=== PATIENT | male | born 1990 | race Caucasian/White ===

== ENCOUNTER 2016-03-11 14:44 | Emergency (ER) | payer OTHER, MEDICAID ==
--- NOTE | 2016-03-11 14:59 | ER Document Report ---
ED Medical Screen (RME) - General Stated Complaint: ABDOMINAL PAIN Notes: 25 yo male c/o RLQ pain since 12 today. low back pain since last night. + nausea, no vomiting. no fever. + diarrhea. no urinary symptoms TRAVEL OUTSIDE OF THE [place] IN LAST 30 DAYS: No - Related Data Allergies/Adverse Reactions: nickel [Nickel] Allergy (Verified 04/10/15 20:32) Generalized Itching poison anjali extract [Poison Anjali Extract] Allergy (Verified 04/10/15 20:32) Past Medical History - Past Medical History Cardiac Medical History: Denies: Hx Coronary Artery Disease, Hx Heart Attack, Hx Hypertension Pulmonary Medical History: Reports: Hx Asthma, Hx Bronchitis, Hx Pneumonia Denies: Hx COPD Neurological Medical History: Reports: Hx Seizures - WHEN 2 MENINGITIS HAD SEIZURES AND BRAIN BLEED. Denies: Hx Cerebrovascular Accident - HAS MENINGITIS WHEN 2 Musculoskeltal Medical History: Denies Hx Arthritis Psychiatric Medical History: Reports: Hx Attention Deficit Hyperactivity Disorder, Hx Bipolar Disorder, Hx Depression Past Surgical History: Reports: Hx Cholecystectomy, Hx Orthopedic Surgery - finger - Immunizations Hx Diphtheria, Pertussis, Tetanus Vaccination: Yes
[2016-03-11 15:33] LABS: ABSOLUTE BASOPHILS # (AUTO) 0.1 10^3/uL (0.0-0.2); ABSOLUTE EOSINOPHILS # (AUTO) 0.3 10^3/uL (0.0-0.6); ABSOLUTE LYMPHOCYTES (AUTO) 2.4 10^3/uL (0.5-4.7); BASOPHILS % (AUTO) 1.4 % (0-2); EOSINOPHILS % (AUTO) 3.3 % (0-6); HEMATOCRIT 50.9 % (37.9-51.0); HEMOGLOBIN 17.8 g/dL (13.5-17.0); HGB HCT DIFFERENCE 2.5; LYMPHOCYTES % (AUTO) 24.6 % (13-45); MEAN CORPUSCULAR VOLUME 83 fl (80-97); MONOCYTES % (AUTO) 9.9 % (3-13); RED BLOOD COUNT 6.14 10^6/uL (4.35-5.55); SEGMENTED NEUTROPHILS % (AUTO) 60.8 % (42-78); WHITE BLOOD COUNT 9.9 10^3/uL (4.0-10.5)
[2016-03-11 15:42] LABS: APPEARANCE,URINE CLEAR; BILIRUBIN,URINE NEGATIVE (NEGATIVE); GLUCOSE, URINE NEGATIVE (NEGATIVE); KETONES,URINE NEGATIVE (NEGATIVE); LEUKOCYTE ESTERASE,URINE NEGATIVE (NEGATIVE); NITRITE,URINE NEGATIVE (NEGATIVE); PROTEIN,URINE NEGATIVE (NEGATIVE); URINE SPECIFIC GRAVITY 1.031; UROBILINOGEN,URINE NEGATIVE mg/dL (<2.0)
[2016-03-11 15:49] LABS: ALANINE AMINOTRANSFERASE 25 U/L (21-72); ALBUMIN 5.3 g/dL (3.5-5.0); ALKALINE PHOSPHATASE 70 U/L (38-126); ANION GAP 15 (5-19); ASPARTATE AMINO TRANSFERASE 20 U/L (17-59); BILIRUBIN,TOTAL 0.6 mg/dL (0.2-1.3); BLOOD UREA NITROGEN 15 mg/dL (7-20); CARBON DIOXIDE 25 mmol/L (22-30); CHLORIDE 102 mmol/L (98-107); CREATININE RESULT 0.75 mg/dL (0.52-1.25); GLUCOSE 91 mg/dL (75-110); LIPASE 61.6 U/L (23-300); POTASSIUM 4.3 mmol/L (3.6-5.0); SODIUM 142.1 mmol/L (137-145)
--- NOTE | 2016-03-11 20:10 | ER Document Report ---
ED General - General Chief Complaint: Abdominal Pain Stated Complaint: ABDOMINAL PAIN Notes: Patient is a 25-year-old male with past medical history of tachycardia who presents with one episode of green diarrhea after she developed an abrupt onset of sharp, focal right lower quadrant abdominal pain that has since resolved. Denies a history of similar symptoms in the past. Nothing improved or worsened his symptoms. He does have a history of a cholecystectomy. Denies any testicular tenderness or pain. Denies any discomfort at all time of my assessment. Denies any vomiting and has been able to tolerate oral intake. He has not had any fever or abdominal trauma. He has not seen his primary care physician regarding today's concerns. TRAVEL OUTSIDE OF THE [place] IN LAST 30 DAYS: No - Related Data Allergies/Adverse Reactions: nickel [Nickel] Allergy (Verified 03/11/16 15:00) Generalized Itching poison anjali extract [Poison Anjali Extract] Allergy (Verified 03/11/16 15:00) Past Medical History - General Information source: Patient - Social History Smoking Status: Never Smoker Chew tobacco use (# tins/day): No Frequency of alcohol use: Occasional Drug Abuse: None Lives with: Spouse/Significant other Family History: Reviewed & Not Pertinent Patient has suicidal ideation: No Patient has homicidal ideation: No - Past Medical History Cardiac Medical History: Denies: Hx Coronary Artery Disease, Hx Heart Attack, Hx Hypertension Pulmonary Medical History: Reports: Hx Asthma, Hx Bronchitis, Hx Pneumonia Denies: Hx COPD Neurological Medical History: Reports: Hx Seizures - WHEN 2 MENINGITIS HAD SEIZURES AND BRAIN BLEED. Denies: Hx Cerebrovascular Accident - HAS MENINGITIS WHEN 2 Renal/ Medical History: Denies: Hx Peritoneal Dialysis Musculoskeltal Medical History: Denies Hx Arthritis Psychiatric Medical History: Reports: Hx Attention Deficit Hyperactivity Disorder, Hx Bipolar Disorder, Hx Depression Past Surgical History: Reports: Hx Cholecystectomy, Hx Orthopedic Surgery - finger - Immunizations Hx Diphtheria, Pertussis, Tetanus Vaccination: Yes Review of Systems - Review of Systems Notes: Constitutional: Negative for fever. HENT: Negative for sore throat. Eyes: Negative for visual changes. Cardiovascular: Negative for chest pain. Respiratory: Negative for shortness of breath. Gastrointestinal: Positive for abdominal pain and diarrhea Genitourinary: Negative for dysuria. Musculoskeletal: Negative for back pain. Skin: Negative for rash. Neurological: Negative for headaches, weakness or numbness. 10 point ROS negative except as marked above and in HPI. Physical Exam - Vital signs Vitals: Temp Pulse Resp BP Pulse Ox 98.0 F 115 H 16 134/97 H 96 03/11/16 14:59 03/11/16 14:59 03/11/16 14:59 03/11/16 14:59 03/11/16 14:59 Interpretation: Tachycardic Notes: PHYSICAL EXAMINATION: GENERAL: Well-appearing, well-nourished and in no acute distress. HEAD: Atraumatic, normocephalic. EYES: Pupils equal round and reactive to light, extraocular movements intact, sclera anicteric, conjunctiva are normal. ENT: nares patent, oropharynx clear without exudates. Moist mucous membranes. NECK: Normal range of motion, supple without lymphadenopathy LUNGS: Breath sounds clear to auscultation bilaterally and equal. No wheezes rales or rhonchi. HEART: Regular rate and rhythm without murmurs ABDOMEN: Soft, nontender, normoactive bowel sounds. No guarding, no rebound. No masses appreciated. EXTREMITIES: Normal range of motion, no pitting or edema. No cyanosis. NEUROLOGICAL: No focal neurological deficits. Moves all extremities spontaneously and on command. PSYCH: Normal mood, normal affect. SKIN: Warm, Dry, normal turgor, no rashes or lesions noted. Course - Re-evaluation Re-evalutation: 03/12/16 00:35 Patient presents with a single episode of diarrhea with a brief period of right lower quadrant abdominal pain now resolved. He is overall well in appearance, vitals are tachycardia which she has at baseline. No distress. Tolerating oral intake without difficulty. His history, exam, and labs are not consistent with an acute appendicitis, bowel obstruction, or bowel perforation.At this time will discharge with return precautions and follow-up recommendations. Verbal discharge instructions given a the bedside and opportunity for questions given. Medication warnings reviewed. Patient is in agreement with this plan and has verbalized understanding of return precautions and the need for primary care follow-up in the next 24-72 hours. - Vital Signs Vital signs: Temp Pulse Resp BP Pulse Ox 98.8 F 82 14 137/92 H 98 03/11/16 20:21 03/11/16 20:21 03/11/16 20:21 03/11/16 20:21 03/11/16 20:21 - Laboratory Result Diagrams: 03/11/16 15:05 03/11/16 15:05 Laboratory results interpreted by me: 03/11/16 03/11/16 15:05 15:05 RBC 6.14 H Hgb 17.8 H Albumin 5.3 H Discharge - Discharge Clinical Impression: Abdominal cramping Diarrhea Qualifiers: Diarrhea type: unspecified type Qualified Code(s): R19.7 - Diarrhea, unspecified Condition: Good Disposition: HOME, SELF-CARE Instructions: Observation for Appendicitis ([facility]) Additional Instructions: Your symptoms are likely due to a viral illness and should resolve in the next several days. Continue to stay hydrated with plenty of solution such as Gatorade or Pedialyte. Please return if you develop severe abdominal pain, fever >100.4, pass out, become unable to tolerate any oral fluids for 12 more hours, or any other symptoms that are concerning to you. Referrals: JUAQUIN WINSTON MD [Primary Care Provider] - Follow up as needed
[2016-03-11 20:32] VITALS: BP 137/92
== END 2016-03-11 20:25 | disposition home or self-care (01) ==
LOC: ER 14:44
DX: R10.31 Right lower quadrant pain (principal); R19.7 Diarrhea, unspecified; R00.0 Tachycardia, unspecified; J45.909 Unspecified asthma, uncomplicated; Z90.49 Acquired absence of other specified parts of digestive tract
CPT/HCPCS: 36415; 80053; 81001; 83690; 85025; 99284

== ENCOUNTER 2016-11-03 10:54 | Emergency (ER) | payer OTHER, MEDICAID ==
--- NOTE | 2016-11-03 11:36 | ER Document Report ---
ED Medical Screen (RME) - General Chief Complaint: Foreign Body in Ear Stated Complaint: POSSIBLE FOREIGN OBJECT IN EAR Time Seen by Provider: 11/03/16 11:34 Notes: Patient states that he put 2 BBs in his right ear yesterday because he was bored. He states he would like them removed. Patient also states that he is under current mental health management and was seen today at his mental health facility. He received a shot and takes Invega daily. He states he has occasionally had some thoughts of cutting himself but has never tried to hurt himself before. He states he does have problems hearing voices and that is why he is followed at the mental health facility. Exam shows 2 BBs lodged deep within the right ear canal. TRAVEL OUTSIDE OF THE [place] IN LAST 30 DAYS: No - Related Data Allergies/Adverse Reactions: aripiprazole [From Abilify] Allergy (Verified 11/03/16 11:12) Diarrhea nickel [Nickel] Allergy (Verified 11/03/16 11:12) Generalized Itching poison anjali extract [Poison Anjali Extract] Allergy (Verified 11/03/16 11:12) Past Medical History - Past Medical History Cardiac Medical History: Denies: Hx Coronary Artery Disease, Hx Heart Attack, Hx Hypertension Pulmonary Medical History: Reports: Hx Asthma, Hx Bronchitis, Hx Pneumonia Denies: Hx COPD Neurological Medical History: Reports: Hx Seizures - WHEN 2 MENINGITIS HAD SEIZURES AND BRAIN BLEED. Denies: Hx Cerebrovascular Accident - HAS MENINGITIS WHEN 2 Renal/ Medical History: Denies: Hx Peritoneal Dialysis Musculoskeltal Medical History: Denies Hx Arthritis Psychiatric Medical History: Reports: Hx Attention Deficit Hyperactivity Disorder, Hx Bipolar Disorder, Hx Depression Past Surgical History: Reports: Hx Cholecystectomy, Hx Orthopedic Surgery - finger - Immunizations Hx Diphtheria, Pertussis, Tetanus Vaccination: Yes Physical Exam - Vital signs Vitals: Temp Pulse Resp BP Pulse Ox 98.4 F 81 16 118/83 98 11/03/16 11:12 11/03/16 11:12 11/03/16 11:12 11/03/16 11:12 11/03/16 11:12 Course - Vital Signs Vital signs: Temp Pulse Resp BP Pulse Ox 98.4 F 81 16 118/83 98 11/03/16 11:12 11/03/16 11:12 11/03/16 11:12 11/03/16 11:12 11/03/16 11:12
--- NOTE | 2016-11-03 13:09 | ER Document Report ---
ED ENT - General Mode of Arrival: Ambulatory Information source: Patient TRAVEL OUTSIDE OF THE [place] IN LAST 30 DAYS: No - General Chief Complaint: Foreign Body in Ear Stated Complaint: POSSIBLE FOREIGN OBJECT IN EAR Time Seen by Provider: 11/03/16 11:34 Notes: Patient is a 26-year-old male who presents to the emergency department today with complaints of 2 BBs in his right ear. Patient states he "was not thinking when he put them in his ear". Patient states these BBs are plastic, not metallic. Patient denies any pain with these or difficulty hearing. (TONYA BERGERON) - Related Data Allergies/Adverse Reactions: aripiprazole [From Abilify] Allergy (Verified 11/03/16 11:12) Diarrhea nickel [Nickel] Allergy (Verified 11/03/16 11:12) Generalized Itching poison anjali extract [Poison Anjali Extract] Allergy (Verified 11/03/16 11:12) Home Medications: Current Home Medications Atenolol [Tenormin] 25 mg PO DAILY 11/03/16 [History] Benztropine Mesylate [Cogentin 1 mg Tablet] 1 mg PO Q12 11/03/16 [History] Gabapentin [Neurontin 300 mg Capsule] 300 mg PO Q8 11/03/16 [History] Hydroxyzine Pamoate [Vistaril 50 mg Capsule] 50 mg PO Q8HP PRN 11/03/16 [History ] Invega Sustenna 156 mg IM Q28D 11/03/16 [History] Paliperidone [Paliperidone ER] 3 mg PO QAM 11/03/16 [History] Trazodone HCl [Desyrel] 100 mg PO QHS 11/03/16 [History] Unobtainable [Unobtainable] 11/03/16 [History] Past Medical History - General Information source: Patient - Social History Smoking Status: Never Smoker Chew tobacco use (# tins/day): No Frequency of alcohol use: Occasional Drug Abuse: None Lives with: Family Family History: Reviewed & Not Pertinent Patient has suicidal ideation: Yes - pt states has thought about cutting himself in the last few months Pulmonary Medical History: Reports: Hx Asthma, Hx Bronchitis, Hx Pneumonia Neurological Medical History: Reports: Hx Seizures - WHEN 2 MENINGITIS HAD SEIZURES AND BRAIN BLEED Psychiatric Medical History: Reports: Hx Attention Deficit Hyperactivity Disorder, Hx Bipolar Disorder, Hx Depression Past Surgical History: Reports: Hx Cholecystectomy, Hx Orthopedic Surgery - finger - Immunizations Hx Diphtheria, Pertussis, Tetanus Vaccination: Yes Review of Systems - Review of Systems Constitutional: No symptoms reported EENT: See HPI, Other - foreign body in right ear Cardiovascular: No symptoms reported Respiratory: No symptoms reported Gastrointestinal: No symptoms reported Genitourinary: No symptoms reported Male Genitourinary: No symptoms reported Musculoskeletal: No symptoms reported Skin: No symptoms reported Hematologic/Lymphatic: No symptoms reported Neurological/Psychological: No symptoms reported -: Yes All other systems reviewed and negative Physical Exam - Vital signs Vitals: Temp Pulse Resp BP Pulse Ox 98.4 F 81 16 118/83 98 11/03/16 11:12 11/03/16 11:12 11/03/16 11:12 11/03/16 11:12 11/03/16 11:12 - Notes Notes: Physical Exam: General: Alert, appears well. HEENT: Normocephalic. Atraumatic. PERRLA. Extraocular movements intact. Oropharynx clear. 2 gold colored spherical objects consistent with BBs in right ear canal, unable to be floated out or easily extracted. Neck: Supple. Respiratory: No respiratory distress. Abdominal: Normal Inspection. No distension. Extremities: Moves all four extremities. Neurological: Cranial nerves II-XII grossly intact bilaterally. Normal cognition. AAOx4. Normal speech. Psychological: Normal affect. Normal Mood. Skin: Warm. Dry. Normal color. (TONYA BERGERON) - Vital Signs Vital signs: Temp Pulse Resp BP Pulse Ox 98.4 F 81 16 118/83 98 11/03/16 11:12 11/03/16 11:12 11/03/16 11:12 11/03/16 11:12 11/03/16 11:12 Discharge - Discharge Clinical Impression: Foreign body of ear, right Qualifiers: Encounter type: initial encounter Qualified Code(s): T16.1XXA - Foreign body in right ear, initial encounter Condition: Stable Disposition: HOME, SELF-CARE Additional Instructions: Removal of the plastic BG ablation air will probably require using the binocular microscope. You will need to follow-up with the ear nose and throat doctor in the office. Call [facility] today to schedule appointment this week. Referrals: [facility] [Provider Group] - Follow up in 3-5 days Scribe Attestation: 11/03/16 14:05 I personally performed the services described in the documentation, reviewed and edited the documentation which was dictated to the scribe in my presence, and it accurately records my words and actions. (TOMASA BELLA) Scribe Documentation - Scribe Written by Amador:: Amador Breaux, 11/04/2016 1346 acting as scribe for :: Matthew
[2016-11-03 14:12] VITALS: BP 113/69
== END 2016-11-03 14:12 | disposition home or self-care (01) ==
LOC: ER 10:54
DX: T16.1XXA Foreign body in right ear, initial encounter (principal); X58.XXXA Exposure to other specified factors, initial encounter; Z90.49 Acquired absence of other specified parts of digestive tract
CPT/HCPCS: 99283

== ENCOUNTER 2017-06-14 15:12 | Emergency (ER) | payer OTHER, MEDICAID ==
[2017-06-14] MEDS ORDERED: ASPIRIN 325 MG TABLET PO ONE (15:38)
[2017-06-14] MEDS ORDERED: MAG HYDROX/AL HYDROX/SIMETH SUSP 30 ML UDCUP PO ONE (15:45)
--- NOTE | 2017-06-14 16:12 | RADIOLOGY REPORT (SQ) ---
EXAM DESCRIPTION: CHEST 2 VIEWS COMPLETED DATE/TIME: 06/14/2017 3:48 pm REASON FOR STUDY: fall/pain COMPARISON: 02/06/2015. EXAM PARAMETERS: NUMBER OF VIEWS: two views TECHNIQUE: Digital Frontal and Lateral radiographic views of the chest acquired. RADIATION DOSE: NA LIMITATIONS: none FINDINGS: LUNGS AND PLEURA: No opacities, masses or pneumothorax. No pleural effusion. MEDIASTINUM AND HILAR STRUCTURES: No masses or contour abnormalities. HEART AND VASCULAR STRUCTURES: Heart normal size. No evidence for failure. BONES: No acute findings. HARDWARE: None in the chest. OTHER: No other significant finding. IMPRESSION: NO ACUTE RADIOGRAPHIC FINDING IN THE CHEST. TECHNICAL DOCUMENTATION: JOB ID: [id number] [employer]- All Rights Reserved Reading location - IP/workstation name: [email or web address]
[2017-06-14 16:21] LABS: ABSOLUTE EOSINOPHILS # (AUTO) 0.4 10^3/uL (0.0-0.6); ABSOLUTE LYMPHOCYTES (AUTO) 2.6 10^3/uL (0.5-4.7); ABSOLUTE MONOCYTES (AUTO) 0.8 10^3/uL (0.1-1.4); BASOPHILS % (AUTO) 0.4 % (0-2); EOSINOPHILS % (AUTO) 4.8 % (0-6); HEMATOCRIT 43.4 % (37.9-51.0); HEMOGLOBIN 15.2 g/dL (13.5-17.0); LYMPHOCYTES % (AUTO) 33.4 % (13-45); MEAN CORPUSCULAR HEMOGLOBIN 28.6 pg (27.0-33.4); MEAN CORPUSCULAR VOLUME 82 fl (80-97); MONOCYTES % (AUTO) 10.3 % (3-13); PLATELET COUNT 346 10^3/uL (150-450); RED CELL DISTRIBUTION WIDTH 13.2 % (11.5-14.0); SEGMENTED NEUTROPHILS % (AUTO) 51.1 % (42-78); TOTAL CELLS COUNTED % (AUTO) 100 %; WHITE BLOOD COUNT 7.8 10^3/uL (4.0-10.5)
[2017-06-14 16:38] LABS: ALANINE AMINOTRANSFERASE 25 U/L (21-72); ALBUMIN 4.7 g/dL (3.5-5.0); ALKALINE PHOSPHATASE 66 U/L (38-126); ANION GAP 14 (5-19); ASPARTATE AMINO TRANSFERASE 18 U/L (17-59); BILIRUBIN,DIRECT 0.1 mg/dL (0.0-0.4); BILIRUBIN,TOTAL 0.2 mg/dL (0.2-1.3); BLOOD UREA NITROGEN 9 mg/dL (7-20); CALCIUM 10.1 mg/dL (8.4-10.2); CARBON DIOXIDE 24 mmol/L (22-30); CHLORIDE 104 mmol/L (98-107); GLUCOSE 98 mg/dL (75-110); POTASSIUM 3.8 mmol/L (3.6-5.0); SODIUM 142.1 mmol/L (137-145); TOTAL PROTEIN 7.1 g/dL (6.3-8.2)
--- NOTE | 2017-06-14 18:19 | ER Document Report ---
ED Cardiac - General Chief Complaint: Chest Pain Stated Complaint: CHEST PAIN Time Seen by Provider: 06/14/17 15:38 Mode of Arrival: Ambulatory Information source: Patient Notes: Patient reports 2 days of tight stabbing chest pain is worse with deep breath and better with rest. He denies any type of cough. No tobacco use. No sniffing and radiation of the pain. Pain is intermittent. It is mild to moderate. Patient states that he has had no rhinorrhea or sinus congestion. No nausea vomiting or diarrhea. No previous cardiac history. TRAVEL OUTSIDE OF THE [place] IN LAST 30 DAYS: No - Related Data Allergies/Adverse Reactions: aripiprazole [From Abilify] Allergy (Verified 06/14/17 15:14) Diarrhea nickel [Nickel] Allergy (Verified 06/14/17 15:14) Generalized Itching poison anjali extract [Poison Anjali Extract] Allergy (Verified 06/14/17 15:14) Past Medical History - General Information source: Patient - Social History Smoking Status: Never Smoker Frequency of alcohol use: Occasional Drug Abuse: None Family History: Reviewed & Not Pertinent Patient has suicidal ideation: No Patient has homicidal ideation: No - Past Medical History Cardiac Medical History: Denies: Hx Coronary Artery Disease, Hx Heart Attack, Hx Hypertension Pulmonary Medical History: Reports: Hx Asthma, Hx Bronchitis, Hx Pneumonia Denies: Hx COPD Neurological Medical History: Reports: Hx Seizures - WHEN 2 MENINGITIS HAD SEIZURES AND BRAIN BLEED. Denies: Hx Cerebrovascular Accident - HAS MENINGITIS WHEN 2 Renal/ Medical History: Denies: Hx Peritoneal Dialysis Musculoskeltal Medical History: Denies Hx Arthritis Psychiatric Medical History: Reports: Hx Attention Deficit Hyperactivity Disorder, Hx Bipolar Disorder, Hx Depression Past Surgical History: Reports: Hx Cholecystectomy, Hx Orthopedic Surgery - finger - Immunizations Hx Diphtheria, Pertussis, Tetanus Vaccination: Yes Review of Systems - Review of Systems Constitutional: denies: Chills, Fever Cardiovascular: Chest pain. denies: Syncope Respiratory: denies: Cough, Short of breath -: Yes All other systems reviewed and negative Physical Exam - Vital signs Vitals: Temp Pulse Resp BP Pulse Ox 98.1 F 87 18 130/77 H 97 06/14/17 15:18 06/14/17 15:18 06/14/17 15:18 06/14/17 15:18 06/14/17 15:18 Course - Vital Signs Vital signs: Temp Pulse Resp BP Pulse Ox 98.1 F 87 18 130/77 H 97 06/14/17 15:18 06/14/17 15:18 06/14/17 15:18 06/14/17 15:18 06/14/17 15:18 - Laboratory Result Diagrams: 06/14/17 15:57 06/14/17 15:57 - Diagnostic Test Radiology reviewed: Image reviewed, Reports reviewed Radiology results interpreted by me: 06/14/17 18:17 I reviewed both views of the patient's x-ray. There is no evidence of infiltrate or edema. - EKG Interpretation by Me EKG shows normal: Sinus rhythm Rate: Normal Rhythm: NSR [place]/QRS: No: Right axis deviation, Left axis deviation Discharge - Discharge Clinical Impression: Chest pain at rest Condition: Stable Disposition: HOME, SELF-CARE Instructions: Chest Pain of Unclear Cause ([facility]) Forms: Return to Work
[2017-06-14 18:32] VITALS: BP 136/81
--- NOTE | 2017-06-14 21:12 | EKG REPORT ---
SEVERITY:- NORMAL ECG - SINUS RHYTHM : Confirmed by: Sunita Matias 14-Jun-2017 21:11:14
== END 2017-06-14 18:32 | disposition home or self-care (01) ==
LOC: ER 15:12
DX: R07.9 Chest pain, unspecified (principal); Z90.49 Acquired absence of other specified parts of digestive tract
CPT/HCPCS: 36415; 71046; 80053; 84484; 85025; 93005; 93010; 99285

== ENCOUNTER 2017-08-16 10:09 | Emergency (ER) | payer OTHER, MEDICAID ==
--- NOTE | 2017-08-16 10:32 | ER Document Report ---
ED Psych Disorder / Suicide <ISABELLA RIOS - Last Filed: 08/16/17 15:38> - General Mode of Arrival: Medic Information source: Patient, Emergency Med Personnel TRAVEL OUTSIDE OF THE [place] IN LAST 30 DAYS: No - HPI Patient complains to provider of: Overdose Onset: Just prior to arrival Onset was: Sudden Quality of pain: Dull Severity: Mild Suicide Risk Factors: Male, No spouse, Prior suicide attempt, Other mental health dx. Suicide Attempt Method: Overdose Overdose of: Other - IBUPROFEN Associated symptoms: Agitated Similar symptoms previously: Yes Recently seen / treated by doctor: No <JOSE OLVERA - Last Filed: 08/16/17 15:52> - General Stated Complaint: POSSIBLE OVERDOSE Time Seen by Provider: 08/16/17 10:24 Notes: Patient states that he took approximately 20 Advil (ibuprofen) 200 mg tablets this morning. He cannot pinpoint exactly what time, but it was after daybreak. He states he took the Advil because he was having back pain and wanted quick relief. He denies suicidal intent. (JOSE OLVERA) - Related Data Allergies/Adverse Reactions: aripiprazole [From Abilify] Allergy (Verified 06/14/17 15:14) Diarrhea nickel [Nickel] Allergy (Verified 06/14/17 15:14) Generalized Itching poison anjali extract [Poison Anjali Extract] Allergy (Verified 06/14/17 15:14) Past Medical History - General Information source: Patient, Parent - Social History Smoking Status: Unknown if Ever Smoked Cigarette use (# per day): No Chew tobacco use (# tins/day): No Frequency of alcohol use: None Drug Abuse: None Lives with: Parents Family History: Reviewed & Not Pertinent Patient has suicidal ideation: No - DENIES Patient has homicidal ideation: No - Past Medical History Cardiac Medical History: Denies: Hx Coronary Artery Disease, Hx Heart Attack, Hx Hypertension Pulmonary Medical History: Reports: Hx Asthma, Hx Bronchitis, Hx Pneumonia Denies: Hx COPD Neurological Medical History: Reports: Hx Seizures - WHEN 2 MENINGITIS HAD SEIZURES AND BRAIN BLEED. Denies: Hx Cerebrovascular Accident - HAS MENINGITIS WHEN 2 Endocrine Medical History: Reports: None Renal/ Medical History: Reports: None. Denies: Hx Peritoneal Dialysis Malignancy Medical History: Reports None GI Medical History: Reports: None Musculoskeltal Medical History: Reports None, Denies Hx Arthritis Psychiatric Medical History: Reports: Hx Attention Deficit Hyperactivity Disorder, Hx Bipolar Disorder, Hx Depression Past Surgical History: Reports: Hx Cholecystectomy, Hx Orthopedic Surgery - finger - Immunizations Hx Diphtheria, Pertussis, Tetanus Vaccination: Yes <WADEJOSE - Last Filed: 08/16/17 15:52> Review of Systems - Review of Systems Constitutional: No symptoms reported EENT: No symptoms reported Cardiovascular: No symptoms reported Respiratory: No symptoms reported Gastrointestinal: No symptoms reported Musculoskeletal: See HPI, Back pain Skin: No symptoms reported Neurological/Psychological: No symptoms reported <WADEJOSE - Last Filed: 08/16/17 15:52> Physical Exam - Vital signs Interpretation: Normal - General General appearance: Appears well, Alert In distress: None - HEENT Head: Normocephalic Eyes: Normal Conjunctiva: Normal Ears: Normal Nasal: Normal Mouth/Lips: Normal Mucous membranes: Normal - Respiratory Respiratory status: No respiratory distress - Cardiovascular Rhythm: Regular - Abdominal Inspection: Normal Distension: No distension - Extremities General upper extremity: Normal inspection General lower extremity: Normal inspection - Neurological Neuro grossly intact: Yes Cognition: Normal Orientation: AAOx4 - Psychological Associated symptoms: Agitated - Skin Skin Temperature: Warm Skin Moisture: Dry Skin Color: Normal Skin Turgor: Elastic <JOSE OLVERA - Last Filed: 08/16/17 15:52> Course - Laboratory Result Diagrams: 08/16/17 10:15 08/16/17 10:15 <ISABELLA RIOS - Last Filed: 08/16/17 15:38> - Laboratory Result Diagrams: 08/16/17 10:15 08/16/17 10:15 <JOSE OLVERA - Last Filed: 08/16/17 15:52> - Laboratory Laboratory results interpreted by me: 08/16/17 08/16/17 08/16/17 10:15 10:15 10:15 Calcium 10.4 H ALT 18 L Urine Ascorbic Acid 40 H Salicylates < 1.0 L Acetaminophen < 10 L Valproic Acid < 10.0 L Discharge <ISABELLA RIOS - Last Filed: 08/16/17 15:38> <JOSE OLVERA - Last Filed: 08/16/17 15:52> - Discharge Clinical Impression: Cluster B personality traits Condition: Stable Disposition: HOME, SELF-CARE Additional Instructions: Overdose You have taken more medication than you should have. After your evaluation and care, it is felt that your overdose is not likely to be harmful or of any significant consequences to you and you are being discharged. In the future, you should be careful not to take more medications than what is prescribed for you. Although your overdose does not seem to be of any danger to you at this time, if you develop any unusual or unexpected symptoms after your discharge, you should return to the Emergency Department immediately for re-evaluation. Your recommended to follow-up with your outpatient mental health provider, [facility] , in 3-5 days to discuss possible options for assistance in impulse control. Referrals: [facility] [Outside] - Follow up in 3-5 days
[2017-08-16 10:47] LABS: HEMATOCRIT 44.5 % (37.9-51.0); HEMOGLOBIN 15.6 g/dL (13.5-17.0); MEAN CORPUSCULAR HEMOGLOBIN 28.7 pg (27.0-33.4); MEAN CORPUSCULAR HGB CONC 35.1 g/dL (32.0-36.0); MEAN CORPUSCULAR VOLUME 82 fl (80-97); PLATELET COUNT 323 10^3/uL (150-450); RED BLOOD COUNT 5.44 10^6/uL (4.35-5.55); RED CELL DISTRIBUTION WIDTH 13.7 % (11.5-14.0); WHITE BLOOD COUNT 5.6 10^3/uL (4.0-10.5)
[2017-08-16 11:04] LABS: ALANINE AMINOTRANSFERASE 18 U/L (21-72); ALBUMIN 4.7 g/dL (3.5-5.0); ALKALINE PHOSPHATASE 85 U/L (38-126); ASPARTATE AMINO TRANSFERASE 26 U/L (17-59); BILIRUBIN,DIRECT 0.4 mg/dL (0.0-0.4); BILIRUBIN,TOTAL 0.7 mg/dL (0.2-1.3); BLOOD UREA NITROGEN 13 mg/dL (7-20); CALCIUM 10.4 mg/dL (8.4-10.2); CARBON DIOXIDE 23 mmol/L (22-30); CHLORIDE 105 mmol/L (98-107); GLUCOSE 101 mg/dL (75-110); POTASSIUM 4.3 mmol/L (3.6-5.0); TOTAL PROTEIN 7.8 g/dL (6.3-8.2)
--- NOTE | 2017-08-16 11:12 | RADIOLOGY REPORT (SQ) ---
EXAM DESCRIPTION: CHEST SINGLE VIEW portable COMPLETED DATE/TIME: 08/16/2017 10:51 am REASON FOR STUDY: od COMPARISON: 06/14/2017 EXAM PARAMETERS: NUMBER OF VIEWS: One view. TECHNIQUE: Single frontal radiographic view of the chest acquired. RADIATION DOSE: NA LIMITATIONS: None. FINDINGS: LUNGS AND PLEURA: No opacities, masses or pneumothorax. No pleural effusion. MEDIASTINUM AND HILAR STRUCTURES: No masses. Contour normal. HEART AND VASCULAR STRUCTURES: Heart normal in size. Normal vasculature. BONES: No acute findings. HARDWARE: None in the chest. OTHER: No other significant finding. IMPRESSION: NO ACUTE RADIOGRAPHIC FINDING IN THE CHEST. TECHNICAL DOCUMENTATION: JOB ID: [id number] [employer]- All Rights Reserved Reading location - IP/workstation name: [email or web address]
[2017-08-16 11:15] LABS: ACETAMINOPHEN < 10 ug/mL (10-30); ALCOHOL < 10 mg/dL (NONE DETECTED); SALICYLATE < 1.0 mg/dL (2.0-20.0)
[2017-08-16 11:18] LABS: ABSOLUTE LYMPHOCYTES# (MANUAL) 1.9 10^3/uL (0.5-4.7); ABSOLUTE MONOCYTES # (MANUAL) 0.4 10^3/uL (0.1-1.4); ABSOLUTE NEUTROPHILS# (MANUAL) 2.9 10^3/uL (1.7-8.2); ANION GAP 17 (5-19); BASOPHILS % (MANUAL) 2 % (0-2); EOSINOPHILS % (MANUAL) 6 % (0-6); LYMPHOCYTES % (MANUAL) 30 % (13-45); MONOCYTES % (MANUAL) 7 % (3-13); SEGMENTED NEUTROPHILS % (MAN) 51 % (42-78); TOTAL CELLS COUNTED 100
[2017-08-16 11:19] LABS: PLATELET COMMENT ADEQUATE; RBC MORPHOLOGY COMMENT NORMO-CYTIC/CHROMIC
[2017-08-16 11:44] LABS: APPEARANCE,URINE CLEAR; BILIRUBIN,URINE NEGATIVE (NEGATIVE); COLOR,URINE YELLOW; GLUCOSE, URINE NEGATIVE (NEGATIVE); KETONES,URINE NEGATIVE (NEGATIVE); LEUKOCYTE ESTERASE,URINE NEGATIVE (NEGATIVE); NITRITE,URINE NEGATIVE (NEGATIVE); PROTEIN,URINE NEGATIVE (NEGATIVE); URINE SPECIFIC GRAVITY 1.027; UROBILINOGEN,URINE NEGATIVE mg/dL (<2.0)
[2017-08-16 12:03] LABS: URINE COCAINE SCREEN NEGATIVE; URINE MARIJUANA (THC) SCREEN NEGATIVE; URINE METHADONE SCREEN NEGATIVE; URINE PHENCYCLIDINE SCREEN NEGATIVE
[2017-08-16 12:05] LABS: URINE AMPHETAMINES SCREEN NEGATIVE; URINE BARBITURATES SCREEN NEGATIVE; URINE BENZODIAZEPINES SCREEN NEGATIVE
--- NOTE | 2017-08-16 15:37 | EKG REPORT ---
SEVERITY:- OTHERWISE NORMAL ECG - SINUS ARRHYTHMIA, RATE [id number] : Confirmed by: Orly Maldonado MD 16-Aug-2017 15:36:21
[2017-08-16 15:59] VITALS: BP 133/81
--- NOTE | 2017-08-17 08:34 | PSYCHOLOGICAL NOTE ---
Psych Note - Psych Note Psych Note: Reason for consult: intentional overdose Patient states that he took approximately 20 Advil (ibuprofen) 200 mg tablets this morning. He cannot pinpoint exactly what time, but it was after daybreak. He states he took the Advil because he was having back pain and wanted quick relief. He denies suicidal intent. Patient disclosed that he came to [facility] because he took too many pills. Patient states that he took the medication because his back hurt. Patient adamantly denies this was a suicide attempt stating "it was only 20 pills were could it hurt?" Patient confirms that this is not the first time he is taking too much medication and states "last time I took 25 so a new 20 was not going to kill me that she shows I was not trying to actually hurt myself." Patient explained that he took the medication in front of his day program workers and started to list by name 5 different workers. Patient requests when he will be able to go home because he wants to lay down and watch TV and maybe eat something. Patient's father disclosed that he goes to a day program with [employer] and also receives medication management and individual therapy through [facility]. He states "I do not think he should be committed... This was for attention...this is what he does sometimes." He continued disclosed that the patient lives with his grandparents because he tends to be a trigger for the patient if they spend much time together. He reports the patient has been diagnosed in the past with depression, a mood disorder, anxiety, and ADHD. Patient is alert and orientated to person, place, time and circumstance. Mood is euthymic with congruent affect as evidenced by smiling laughing and openly engaging with clinician. Patient denies suicidal ideation inciting past medication overdose as his way of knowing he was not going to (he took 25 last time so he only took 20 this time). Patient denies homicidal ideation. Delusions are absent behaviors congruent with an intact reality based presentation i.e. organized and linear thought process. Eye contact was well- maintained. Conversational speech was within normal rate, tone and prosody. Attention and concentration are good. Insight, judgment, impulse control are fair. No medication recommendations at this time Diagnosis Strong cluster B personality traits 296.80 (F31.9) unspecified bipolar and related disorder Impression\\plan: Patient is considered cleared from acute psychiatric services. Patient does not meet IVC criteria per [place] GS 122C. Patient denies intentional overdose was an attempt to hurt himself and cites his prior overdose as proof that he knew he would not hurt himself if taking less than last time. Patient' s father discloses that the patient has episodes of attention seeking behaviors such as today's event and does not feel the patient needs to go inpatient psychiatric treatment. Patient is already engaged in medication management, individual therapeutic services, and a day program. Patient is recommended to discuss with his medication provider options that can assist in impulse control. Patient's father agrees to be part of patient's discharge to plan and to ensure the patient does not have access to any medications to include over- the-counter medications. Dr. Finnegan was consulted and the care and management this patient; attending physician is agreement with recommendations and disposition.
== END 2017-08-16 16:00 | disposition home or self-care (01) ==
LOC: ER 10:09
DX: T39.311A Poisoning by propionic acid derivatives, accidental (unintentional), initial encounter (principal); M54.9 Dorsalgia, unspecified; J45.909 Unspecified asthma, uncomplicated; Z88.8 Allergy status to other drugs, medicaments and biological substances
CPT/HCPCS: 36415; 71045; 80053; 80164; 80307; 81001; 85025; 93005; 93010; 99285

== ENCOUNTER → 2018-05-26 | Outpatient (CLI) | payer OTHER, MEDICAID ==
[2018-05-26 09:30] LABS: HEMATOCRIT 44.6 % (37.9-51.0); HEMOGLOBIN 15.9 g/dL (13.5-17.0); MEAN CORPUSCULAR HEMOGLOBIN 28.8 pg (27.0-33.4); MEAN CORPUSCULAR HGB CONC 35.7 g/dL (32.0-36.0); MEAN CORPUSCULAR VOLUME 81 fl (80-97); PLATELET COUNT 322 10^3/uL (150-450); RED BLOOD COUNT 5.53 10^6/uL (4.35-5.55); WHITE BLOOD COUNT 9.2 10^3/uL (4.0-10.5)
[2018-05-26 09:39] LABS: APPEARANCE,URINE SLIGHTLY-CLOUDY; BILIRUBIN,URINE NEGATIVE (NEGATIVE); COLOR,URINE YELLOW; GLUCOSE, URINE NEGATIVE (NEGATIVE); KETONES,URINE NEGATIVE (NEGATIVE); LEUKOCYTE ESTERASE,URINE NEGATIVE (NEGATIVE); NITRITE,URINE NEGATIVE (NEGATIVE); PROTEIN,URINE NEGATIVE (NEGATIVE); URINE SPECIFIC GRAVITY 1.021; UROBILINOGEN,URINE NEGATIVE mg/dL (<2.0)
[2018-05-26 09:58] LABS: ALANINE AMINOTRANSFERASE 50 U/L (21-72); ALBUMIN 4.6 g/dL (3.5-5.0); ALKALINE PHOSPHATASE 75 U/L (38-126); ANION GAP 13 (5-19); ASPARTATE AMINO TRANSFERASE 40 U/L (17-59); BILIRUBIN,DIRECT 0.3 mg/dL (0.0-0.4); BILIRUBIN,TOTAL 0.7 mg/dL (0.2-1.3); BLOOD UREA NITROGEN 12 mg/dL (7-20); CALCIUM 10.2 mg/dL (8.4-10.2); CARBON DIOXIDE 25 mmol/L (22-30); CHLORIDE 102 mmol/L (98-107); CHOLESTEROL 156.27 mg/dL (0-200); CREATINE KINASE 114 U/L (55-170); GLUCOSE 93 mg/dL (75-110); POTASSIUM 4.2 mmol/L (3.6-5.0); SODIUM 139.7 mmol/L (137-145); TOTAL PROTEIN 7.7 g/dL (6.3-8.2); TRIGLYCERIDES 119 mg/dL (<150)
[2018-05-26 10:09] LABS: DIRECT LDL 98 mg/dL (<100)
== END ==
LOC: OD 08:01
PROVIDERS: ATTEND Nurse Practitioner Psychiatric/Mental Health
DX: F25.1 Schizoaffective disorder, depressive type (principal)
CPT/HCPCS: 36415; 80053; 80061; 81001; 82550; 84146; 84443; 85027

== ENCOUNTER 2019-09-07 08:01 | Day surgery (SDC) | payer OTHER, MEDICAID ==
[~2019-09-07 08:01] MED LIST: PROPOFOL INJ 200 MG/20 ML VIAL IV ONE
--- NOTE | 2019-09-07 09:45 | Operative Report ---
Operative Report DATE OF SURGERY: 09/07/19 Operative Report: The risks benefits and alternatives of the procedure explained to the patient in detail and informed consent is obtained.A GIF Olympus video scope was inserted into the patient's mouth and hypopharynx, the esophagus is identified intubated and insufflated ,the scope was then advanced through the esophagus stomach and duodenum, retroflexion maneuver is done, the esophagus stomach and first and second portions of the duodenum examined PREOPERATIVE DIAGNOSIS: Nausea vomiting POSTOPERATIVE DIAGNOSIS: Esophagitis status post biopsy rule out Lopez's esophagus. Gastritis status post biopsy. Duodenitis OPERATION: EGD with biopsy SURGEON: HUMA FLORES ANESTHESIA: LMAC TISSUE REMOVED OR ALTERED: As noted above. COMPLICATIONS: None. ESTIMATED BLOOD LOSS: None. INTRAOPERATIVE FINDINGS: As noted above. PROCEDURE: Patient tolerated the procedure well. No immediate postprocedure complications are noted. Patient is discharged in good condition. Discharge date 09/07/2019. Discharge diet: Regular. Discharge activity: Regular. 2 to 3-week follow-up to discuss findings. Patient is instructed call the office or proceed to the emergency room should there be any further problems or questions. Wait on the pathology.
[2019-09-07 10:36] VITALS: BP 106/79
== END 2019-09-07 10:24 | disposition home or self-care (01) ==
LOC: END 08:01
PROVIDERS: ATTEND Internal Medicine Gastroenterology
DX: K29.80 Duodenitis without bleeding (principal); K31.9 Disease of stomach and duodenum, unspecified; K20.9 Esophagitis, unspecified; Z79.899 Other long term (current) drug therapy; Z88.8 Allergy status to other drugs, medicaments and biological substances; Z79.82 Long term (current) use of aspirin; J45.909 Unspecified asthma, uncomplicated
CPT/HCPCS: 43239; 87635; 88305 ×2; J2704; C9803; 88342

== ENCOUNTER 2019-10-07 08:36 | Emergency (ER) | payer OTHER, MEDICAID ==
[2019-10-07 08:42] VITALS: BP 134/86
--- NOTE | 2019-10-07 09:31 | RADIOLOGY REPORT (SQ) ---
EXAM DESCRIPTION: FOOT RIGHT COMPLETE IMAGES COMPLETED DATE/TIME: 10/07/2019 7:52 am REASON FOR STUDY: pain and injury COMPARISON: None. NUMBER OF VIEWS: Three views. TECHNIQUE: AP, lateral and oblique radiographic images acquired of the right foot. LIMITATIONS: None. FINDINGS: MINERALIZATION: Normal. BONES: No acute fracture or dislocation. No worrisome bone lesions. JOINTS: No effusions. SOFT TISSUES: No soft tissue swelling. No foreign body. OTHER: No other significant finding. IMPRESSION: NEGATIVE STUDY OF THE RIGHT FOOT. NO RADIOGRAPHIC EVIDENCE OF ACUTE INJURY. TECHNICAL DOCUMENTATION: JOB ID: [id number] 2010 [employer]- All Rights Reserved Reading location - IP/workstation name: [email or web address]
--- NOTE | 2019-10-07 10:10 | ER Document Report ---
HPI - HPI Time Seen by Provider: 10/07/19 10:04 Pain Level: 2 Notes: 29-year-old male presents emergency room for right foot pain after he kicked a door yesterday wearing sneakers. Denies any other area of injury. Has not tried gbaf-pdx-mikfyif Tylenol or ibuprofen. Worse with time, nothing makes better. Denies any prior injury to his right foot. Pain is 3 out of 5, achy. denies fevers, chills, chest pain,palpitations, shortness of breath, dyspnea, nausea, vomiting, diarrhea, abdominal pain, hematuria,blurred vision, double vision, loss of vision, speech changes, LH, dizziness, syncope, headaches, wheezing, ST, URI, neck pain, weakness, bowel or bladder dysfunction, saddle anesthesia, numbness or tingling in bilateral upper or lower extremities equally, muscle paralysis, weakness in bilateral upper or lower extremities equally or rash. Denies IV drug use. MEDICATIONS: I agree with the patient medications as charted by the RN. ALLERGIES: I agree with the allergies as charted by the RN. PAST MEDICAL HISTORY/PAST SURGICAL HISTORY: Reviewed and agree as charted by RN. SOCIAL HISTORY: Reviewed and agree as charted by RN. FAMILY HISTORY: No significant familial comorbid conditions directly related to patient complaint EXAM: Reviewed vital signs as charted by RN. REVIEW OF SYSTEMS:reviewed vital signs by RN CONSTITUTIONAL : Denies fever, chills, or sweats. Denies recent illness. EENT: Denies eye, ear, throat, or mouth pain or symptoms. Denies nasal or sinus congestion or discharge. Denies throat, tongue, or mouth swelling or difficulty swallowing. CARDIOVASCULAR: Denies chest pain. Denies palpitations or racing or irregular heart beat. Denies ankle edema. RESPIRATORY: Denies cough, cold, or chest congestion. Denies shortness of breath, difficulty breathing, or wheezing. GASTROINTESTINAL: Denies abdominal pain or distention. Denies nausea, vomiting, or diarrhea. Denies blood in vomitus, stools, or per rectum. Denies black, tarry stools. Denies constipation. GENITOURINARY: Denies difficulty urinating, painful urination, burning, frequency, blood in urine, or discharge. MUSCULOSKELETAL: Report right foot pain. denies back or neck pain or stiffness. Denies joint pain or swelling. SKIN: Denies rash, lesions or sores. HEMATOLOGIC : Denies easy bruising or bleeding. LYMPHATIC: Denies swollen, enlarged glands. NEUROLOGICAL: Denies confusion or altered mental status. Denies passing out or loss of consciousness. Denies dizziness or lightheadedness. Denies headache. Denies weakness or paralysis or loss of use of either side. Denies problems with gait or speech. Denies sensory loss, numbness, or tingling. Denies seizures. PSYCHIATRIC: Denies anxiety or stress. Denies depression, suicidal ideation, or homicidal ideation. ALL OTHER SYSTEMS REVIEWED AND NEGATIVE. Dictation was performed using [employer] voice recognition software PHYSICAL EXAMINATION: GENERAL: Well-appearing, well-nourished and in no acute distress. HEAD: Atraumatic, normocephalic. EYES: Pupils equal round and reactive to light, extraocular movements intact, sclera anicteric, conjunctiva are normal. ENT: Nares patent, oropharynx clear without exudates. Moist mucous membranes. NECK: Normal range of motion, supple without lymphadenopathy LUNGS: Breath sounds clear to auscultation bilaterally and equal. No wheezes rales or rhonchi. HEART: Regular rate and rhythm without murmurs ABDOMEN: Soft, nontender, nondistended abdomen. No guarding, no rebound. No masses appreciated. Musculoskeletal: Normal range of motion, no pitting or edema. No cyanosis. right foot with STS and tenderness on 1st metatarsal bones with palpation. Unable to palpate a step-off. No open lesions. squeeze test negative. dtr +2 BLE. Limited APROM. distal pulses + 2 in BUE. full motor and sensory function. No vascular compromise. Ankle exam within normal limits. No noted lacerations, lesions, ulcers or break in the skin. NEUROLOGICAL: Cranial nerves grossly intact. Normal speech, normal gait. Normal sensory, motor exams PSYCH: Normal mood, normal affect. SKIN: Warm, Dry, normal turgor, no rashes or lesions noted. - REPRODUCTIVE Reproductive: DENIES: : Past Medical History - General Information source: Patient - Social History Smoking Status: Never Smoker Frequency of alcohol use: None Family History: Reviewed & Not Pertinent - Past Medical History Cardiac Medical History: Denies: Hx Coronary Artery Disease, Hx Heart Attack, Hx Hypertension Pulmonary Medical History: Reports: Hx Asthma - MILD, Hx Pneumonia Denies: Hx Bronchitis, Hx COPD Neurological Medical History: Reports: Hx Seizures - MENINGITIS CAUSED SEIZURES AND BRAIN BLEED. Denies: Hx Cerebrovascular Accident - HAD MENINGITIS WHEN 2 Renal/ Medical History: Denies: Hx Peritoneal Dialysis Musculoskeletal Medical History: Denies Hx Arthritis Psychiatric Medical History: Reports: Hx Attention Deficit Hyperactivity Disorder, Hx Bipolar Disorder, Hx Depression Past Surgical History: Reports: Hx Cholecystectomy, Hx Orthopedic Surgery - fing er - Immunizations Hx Diphtheria, Pertussis, Tetanus Vaccination: Yes Vertical Provider Document - CONSTITUTIONAL Agree With Documented VS: Yes Exam Limitations: No Limitations General Appearance: WD/WN - INFECTION CONTROL TRAVEL OUTSIDE OF THE [place] IN LAST 30 DAYS: No Course - Re-evaluation Re-evalutation: 10/07/19 10:14 Afebrile vital stable no distress. Nurses notes reviewed. X-ray negative for any acute fracture dislocation or foreign body. Patient placed in postop shoe and crutches. Advised to follow rice therapy. Naproxen prescribed and sent to pharmacy. Advised to follow-up with email deployment specialist and primary care provider next 24 to 48 hours as needed. After performing a Medical Screening Examination, I estimate there is LOW risk for OPEN FRACTURE, COMPARTMENT SYNDROME, DEEP VENOUS THROMBOSIS, ACUTE TENDON RUPTURE, or NEUROVASCULAR INJURY thus I consider the discharge disposition reasonable. I have reevaluated this patient multiple times and no significant life threatening changes are noted. The patient and I have discussed the diagnosis and risks, and we agree with discharging home to closely follow-up with their primary doctor or the referral orthopedist with the understanding that symptoms and presentations can change. We also discussed returning to the Emergency Department immediately if new or worsening symptoms occur. We have discussed the symptoms which are most concerning (e.g., changing or worsening pain, numbness, weakness) that necessitate immediate return - Vital Signs Vital signs: Temp Pulse Resp BP Pulse Ox 98.3 F 95 20 134/86 H 100 10/07/19 08:40 10/07/19 08:40 10/07/19 08:40 10/07/19 08:40 10/07/19 08:40 Discharge - Discharge Clinical Impression: Right foot sprain Condition: Stable Disposition: HOME, SELF-CARE Instructions: Sprain ([facility]), Use of Crutches ([facility]), Ice Packs ([facility]) Additional Instructions: Your x-ray today was negative. Follow RICE therapy (rest, ice, compression, elevation). Use crutches as directed. Wear postop shoe. Follow-up with email deployment specialist and primary care provider within next 24 to 48 hours as needed. Return immediately for any new or worsening symptoms. Follow up with primary care provider, call tomorrow to make followup appointment. Prescriptions: Naproxen 500 mg PO BID #10 tablet Referrals: GASTON MELENDEZ MD [ACTIVE STAFF] - Follow up as needed LUIS ARCHER MD [ACTIVE STAFF] - Follow up as needed
== END 2019-10-07 10:08 | disposition home or self-care (01) ==
LOC: ER 08:36
DX: S93.601A Unspecified sprain of right foot, initial encounter (principal); M79.671 Pain in right foot; W22.8XXA Striking against or struck by other objects, initial encounter; J45.909 Unspecified asthma, uncomplicated
CPT/HCPCS: 99283

== ENCOUNTER → 2020-03-12 | Outpatient (CLI) | payer OTHER, MEDICAID ==
--- NOTE | 2020-03-12 16:09 | RADIOLOGY REPORT (SQ) ---
EXAM DESCRIPTION: NM GASTRIC EMPTYING STUDY IMAGES COMPLETED DATE/TIME: 03/12/2020 9:09 am REASON FOR STUDY: BILIOUS VOMITING WITH NAUSEA R11.14 BILIOUS VOMITING COMPARISON: None. RADIONUCLIDE AND DOSE: 2.11 millicuries Tc-99m Sulfur Colloid. A wide variety of solid foods have been used. The route of agent administration: Oral. TECHNIQUE: 1 minute serial static imaging performed at time of meal, 1 hour, 2 hours, 3 hours, and 4 hours as needed. Once stomach reaches 90% emptying, the test is complete. Image intensity values pl otted with respect to time with linear regression algorithm. LIMITATIONS: None. FINDINGS: The patient vomited following ingestion of the radionuclide. The study is incomplete. Im mediate images demonstrate radionuclide in the stomach. At 60 minutes there is radionuclide activity in the small bowel. At 90 minutes there has been no appreciable change. IMPRESSION: The patient vomited following ingestion of radionuclide. Correct gastric emptying canno t be calculated. The study was terminated an will need to be repeated. The patient did not inform t he technologist until 90 minutes into the examination. TECHNICAL DOCUMENTATION: JOB ID: [id number] 2010 [employer]- All Rights Reserved rev-07/16 Reading location - IP/workstation name: [email or web address]
== END ==
LOC: RAD 07:24
PROVIDERS: ATTEND Internal Medicine Gastroenterology
DX: R11.14 Bilious vomiting (principal)
CPT/HCPCS: 78264; A9541